=== PATIENT | female | born 1965 | race Caucasian/White ===

== ENCOUNTER 2018-05-27 17:14 | Emergency (ER) | payer MEDICAID ==
[~2018-05-27] VITALS: Ht 162.6 cm; Wt 67.0 kg
[~2018-05-27 17:14] MED LIST: DOXY100C43 PO; NO HOME MEDS
[2018-05-27 17:39] VITALS: BP 135/69
[2018-05-27] MEDS ORDERED: MUPI22OI30 TOP (18:09)
== END 2018-05-27 18:19 | disposition home or self-care (01) ==
LOC: ER 17:15
DX: L08.9 Local infection of the skin and subcutaneous tissue, unspecified (principal); M19.90 Unspecified osteoarthritis, unspecified site; G89.29 Other chronic pain; M54.9 Dorsalgia, unspecified; Z98.890 Other specified postprocedural states; Z90.710 Acquired absence of both cervix and uterus; Z88.5 Allergy status to narcotic agent; Z88.0 Allergy status to penicillin; Z88.6 Allergy status to analgesic agent
CPT/HCPCS: 99283; L4360

== ENCOUNTER 2019-01-27 21:55 | Emergency (ER) | payer MEDICAID ==
[~2019-01-27] VITALS: Ht 157.5 cm; Wt 68.2 kg
[~2019-01-27 21:55] MED LIST changes: -DOXY100C43 PO
[2019-01-27 21:56] VITALS: BP 121/67
--- NOTE | 2019-01-27 22:04 | NUR ---
CAT BITE ON HER TOP OF LEFT HAND. SWOLLEN, NO DRAINAGE NOTED.
[2019-01-27] MEDS ORDERED: TETanus/Pertussis (Acell)/Diphther VAC/PF (Tdap-Adult) 0.5ml syringe IM ONE (22:05)
[2019-01-27] MEDS ORDERED: AMOX-419 PO (22:09)
== END 2019-01-27 22:24 | disposition home or self-care (01) ==
LOC: ER 21:55
DX: S61.432A Puncture wound without foreign body of left hand, initial encounter (principal); G89.29 Other chronic pain; M19.90 Unspecified osteoarthritis, unspecified site; Z98.890 Other specified postprocedural states; Z90.710 Acquired absence of both cervix and uterus; Z88.5 Allergy status to narcotic agent; Z88.0 Allergy status to penicillin; Z88.8 Allergy status to other drugs, medicaments and biological substances; Z79.899 Other long term (current) drug therapy; W55.01XA Bitten by cat, initial encounter; Y93.89 Activity, other specified; Y92.89 Other specified places as the place of occurrence of the external cause; Y99.8 Other external cause status
CPT/HCPCS: 90471; 90715; 99283

== ENCOUNTER 2019-09-09 16:15 | Emergency (ER) | payer MEDICAID ==
[~2019-09-09] VITALS: Ht 154.9 cm; Wt 70.0 kg
[2019-09-09 16:22] VITALS: BP 161/72
[2019-09-09] MEDS ORDERED: CYCL-1 PO (16:55)
[2019-09-10] MEDS ORDERED: LIDO700A32 TP (22:41)
[2019-09-10] MEDS ORDERED: HYDR-3965 PO (22:41)
== END 2019-09-09 17:14 | disposition home or self-care (01) ==
LOC: ER 16:15
DX: M54.5 Low back pain (principal); G89.29 Other chronic pain; M19.90 Unspecified osteoarthritis, unspecified site; Z90.710 Acquired absence of both cervix and uterus; Z98.890 Other specified postprocedural states; Z88.5 Allergy status to narcotic agent; Z88.0 Allergy status to penicillin; Z88.6 Allergy status to analgesic agent; Z88.8 Allergy status to other drugs, medicaments and biological substances; Z79.899 Other long term (current) drug therapy
CPT/HCPCS: 99283

== ENCOUNTER 2019-09-10 21:21 | Emergency (ER) | payer MEDICAID ==
[~2019-09-10] VITALS: Ht 154.9 cm; Wt 69.0 kg
[~2019-09-10 21:21] MED LIST changes: +CYCL-1 PO
[2019-09-10] MEDS ORDERED: acetaminophen 325mg tablet PO ONE ×2 (21:40)
[2019-09-10] MEDS ORDERED: aspirin 325mg tablet PO ONE (21:40)
[2019-09-10] MEDS ORDERED: LIDOcaine 5% patch TP ONE (21:40)
[2019-09-10 21:49] LABS: CLARITY,URINE CLEAR (Clear); COLOR,URINE YELLOW (Yellow); GLUCOSE, URINE NEGATIVE (Neg); KETONES,URINE NEGATIVE (Neg); LEUKOCYTE ESTERASE ,URINE NEGATIVE (Neg); NITRITES, URINE NEGATIVE (Neg); OCCULT BLOOD,URINE SMALL (Neg); PH,URINE 6.5 (4.8-8.0); PROTEIN,URINE NEGATIVE (Neg); UROBILINOGEN,URINE 0.2 E.U/dL (0.2-1.0)
[2019-09-10 21:52] LABS: UA COLLECTION TYPE CLN CATCH MIDSTREAM
[2019-09-10 21:59] LABS: BACTERIA,URINE 2+ /HPF (Neg); MUCUS STRANDS NONE SEEN /LPF (Neg); RBC,URINE 0-2 /HPF (0-2); SQUAMOUS EPITHELIAL CELL,UR MODERATE /LPF (FEW); WBC,URINE NONE SEEN /HPF (0-4)
[2019-09-10] MEDS ORDERED: HYDR-3965 PO (22:41)
[2019-09-10] MEDS ORDERED: LIDO700A32 TP (22:41)
[2019-09-10 22:49] VITALS: BP 127/45
== END 2019-09-10 22:50 | disposition home or self-care (01) ==
LOC: ER 21:22
DX: M54.5 Low back pain (principal); R42 Dizziness and giddiness; N39.0 Urinary tract infection, site not specified; M19.90 Unspecified osteoarthritis, unspecified site; Z90.710 Acquired absence of both cervix and uterus; Z88.5 Allergy status to narcotic agent; Z88.0 Allergy status to penicillin
CPT/HCPCS: 81001; 99284

== ENCOUNTER 2022-05-12 12:48 | Emergency (ER) | payer MEDICARE, MEDICAID ==
[~2022-05-12] VITALS: Ht 154.9 cm; Wt 75.0 kg
[~2022-05-12 12:48] MED LIST changes: +LIDO700A32 TP
[2022-05-12 13:43] VITALS: BP 161/75
[2022-05-12] MEDS ORDERED: DOXY-1 PO ×3 (14:05→14:58)
[2022-05-12] MEDS ORDERED: DOXYCYCLINE 100MG CAPSULE PO STA (14:10)
[2022-05-12] MEDS ORDERED: ketorolac trometh inj. 60 MG/2 ML VIAL IM ONE (14:10)
[2022-05-12] MEDS ORDERED: bacitracin 15gm ointment TP ONE (14:10)
== END 2022-05-12 15:14 | disposition home or self-care (01) ==
LOC: ER 12:49
DX: S71.101A Unspecified open wound, right thigh, initial encounter (principal); G89.29 Other chronic pain; M54.9 Dorsalgia, unspecified; Z88.5 Allergy status to narcotic agent; Z88.0 Allergy status to penicillin; Z88.6 Allergy status to analgesic agent; Z79.899 Other long term (current) drug therapy; Z90.49 Acquired absence of other specified parts of digestive tract; W54.0XXA Bitten by dog, initial encounter; Y93.89 Activity, other specified; Y92.89 Other specified places as the place of occurrence of the external cause; Y99.8 Other external cause status
CPT/HCPCS: 73552; 96372; 99283; J1885; A6258

== ENCOUNTER 2023-02-24 09:00 | Emergency (ER) | payer MEDICARE, MEDICAID ==
[~2023-02-24] VITALS: Ht 154.9 cm; Wt 77.3 kg
[~2023-02-24 09:00] MED LIST changes: +DOXY-1 PO
[2023-02-24] MEDS ORDERED: ipratropium/albuterol 3ml nebule NEB ONE (09:25)
[2023-02-24] MEDS ORDERED: METH4TAB81 PO (09:29)
[2023-02-24] MEDS ORDERED: NYST1000 PO (09:29)
[2023-02-24] MEDS ORDERED: CLAR-69 PO (09:29)
--- NOTE | 2023-02-24 10:02 | NUR ---
Assumed care from RN. Pt in stable condition.
[2023-02-24 10:14] VITALS: BP 143/68
== END 2023-02-24 10:13 | disposition home or self-care (01) ==
LOC: ER 09:01
DX: J01.90 Acute sinusitis, unspecified (principal); J45.901 Unspecified asthma with (acute) exacerbation; B37.0 Candidal stomatitis; M19.90 Unspecified osteoarthritis, unspecified site; Z88.0 Allergy status to penicillin; Z88.5 Allergy status to narcotic agent; Z98.890 Other specified postprocedural states; Z90.710 Acquired absence of both cervix and uterus
CPT/HCPCS: 94640; 94760; 99283

== ENCOUNTER 2023-06-29 10:33 | Emergency (ER) | payer MEDICAID, MEDICARE, OTHER ==
[~2023-06-29] VITALS: Ht 154.9 cm; Wt 73.6 kg
[~2023-06-29 10:33] MED LIST changes: +METH4TAB81 PO
[2023-06-29 10:46] VITALS: BP 132/69; PULSE 89; RESP 18; TEMP 97.9; O2SAT 98
[2023-06-29] MEDS ORDERED: LIDOcaine 5% patch TP ONE (13:15)
== END 2023-06-29 14:06 | disposition home or self-care (01) ==
LOC: ER 10:33
DX: S13.4XXA Sprain of ligaments of cervical spine, initial encounter (principal); V49.9XXA Car occupant (driver) (passenger) injured in unspecified traffic accident, initial encounter; Y93.89 Activity, other specified; Y92.89 Other specified places as the place of occurrence of the external cause; Y99.8 Other external cause status
CPT/HCPCS: 72040; 99284

== ENCOUNTER 2025-07-01 05:55 | Emergency (ER) | payer MEDICARE, MEDICAID ==
[~2025-07-01] VITALS: Ht 154.9 cm; Wt 77.1 kg
[~2025-07-01 05:55] MED LIST changes: +LIDO-52 TP; -LIDO700A32 TP
--- NOTE | 2025-07-01 06:26 | Physician Documentation ---
History of Present Illness General Chief Complaint: Neck pain Stated Complaint: NECK PAIN Time Seen by MD: 06:18 Primary Medical Doctor: CHRIS History of Present Illness Initial Comments 58-year-old female with a history of hypertension who woke up yesterday morning with pain in her neck, especially on the left side. She has had this previously, at least once. She took some ibuprofen yesterday afternoon and Tylenol last night. She denies any fever or other constitutional symptoms. She denies any injury. Medication Reconciliation Allergies: Coded Allergies: Oxycodone Terephthalate (Verified Allergy, Unknown, 07/01/25) Penicillins (Verified Allergy, Unknown, 07/01/25) codeine (Verified Allergy, Unknown, 07/01/25) oxycodone HCl (Verified Allergy, Unknown, 07/01/25) tramadol (Verified Adverse Reaction, Mild, nightmares, 07/01/25) Scheduled Doxycycline Hyclate (Doxycycline Hyclate), 1 CAP PO Q12H Lidocaine (Lidoderm), 1 PATCH TP DAILY Methylprednisolone (Medrol Dosepak), 4 MG PO DAILY Scheduled PRN Cyclobenzaprine* (Cyclobenzaprine*), 1 TABLET PO Q8H PRN for muscle spasms Miscellaneous Medications Home Med List (No Home Medications), (Reported) Past Medical History Past Medical History: Vertigo, UTI, Arthritis, Chronic Back Pain Past Surgical History: , hysterectomy Smoking: Cigarettes, Greater than 1 pack/day Alcohol Use: None Drug Use: none Lives with: S/O Lives In: Home Occupation: employed Review of Systems ROS Constitutional: Denies chills, fatigue, fever, weight gain or weight loss. HEENT: Denies hearing loss, sinus pressure or visual changes. Respiratory: Denies cough, shortness of breath or wheezing. Cardiovascular: Denies chest pain, pain while walking (claudication), edema or palpitations. Gastrointestinal: Denies abdominal pain, blood in stool, constipation, diarrhea, heartburn, loss of appetite, nausea or vomiting. Genitourinary: Denies painful urination (dysuria), excessive amount of urine (polyuria) or urinary frequency. Metabolic/Endocrine: Denies cold intolerance, heat intolerance, excessive thirst (polydipsia) or excessive hunger (polyphagia). Neurological: Denies dizziness, extremity numbness, extremity weakness, headaches, seizures or tremors. Psychiatric: Denies anxiety or depression. Integumentary: Denies breast discharge, breast lump, hives, mole change(s), r raina or skin lesion. Musculoskeletal: Neck pain, left side. Hematologic: Denies easily bleeding, easily bruises, lymphedema or issues with blood clots. Immunologic: Denies food allergies or seasonal allergies. Physical Exam Physical Exam Vital Signs: Temperature: 97.4, Source: Oral, Heart Rate: 99, Respiratory Rate: 16, BP: 176/73, Pulse Oximetry: 97, Weight: 77.100 Physical Exam Physical Exam Vitals and nursing note reviewed. Constitutional: General: Patient is awake, alert, oriented x 4 in no acute distress and well appearing. Speech is clear and lucid. Appearance: Normal appearance. Patient is not ill-appearing, toxic-appearing or diaphoretic. HENT: Head: Normocephalic and atraumatic. Mouth/Throat: Mouth: Mucous membranes are moist. Pharynx: Oropharynx is clear. Eyes: General: No scleral icterus. Extraocular Movements: Extraocular movements intact. Pupils: Pupils are equal, round, and reactive to light. Neck: Supple, no Kernig or Brudzinski sign. Cardiovascular: Rate and Rhythm: Normal rate and regular rhythm. Heart sounds: No murmur heard. Pulmonary: Effort: No respiratory distress. Breath sounds: No wheezing, rhonchi or rales. Abdominal: General: There is no distension. Palpations: There is no fluid wave, hepatomegaly or mass. Tenderness: There is no abdominal tenderness. There is no guarding. Musculoskeletal: General: No midline tenderness of the cervical spine. Skin: Coloration: Skin is not jaundiced. Findings: No erythema or rash. Neurological: Mental Status: Patient is alert. Progress Results/Orders Results/Orders Orders - VASHTI GEORGES MD [facility] (07/01/25 ) Completed Orders - VASHTI GEORGES MD Ibuprofen Tablet (Motrin Tablet) (07/01/25 06:35) Cyclobenzaprine Tablet (Flexeril Tablet) (07/01/25 06:35) [facility] (07/01/25 ) Vital Signs 07/01/25 07/01/25 07/01/25 06:05 06:33 06:33 Temp 97.4 97.4 Pulse 99 84 Resp 16 16 18 B/P (MAP) 176/73 150/71 (97) Pulse Ox 97 96 O2 Flow Rate 0 Medical Decision Making Findings Patient presents with left-sided neck pain upon wakening yesterday. No history of trauma. No fever or constitutional symptoms. Departure Disposition: HOME / SELF CARE / HOMELESS Impression: Primary Impression: Neck pain Condition: Stable Referrals: NO PRIMARY CARE PROVIDER (PCP) Education Educated: Patient Educated regarding: diagnosis, treatment, prognosis, need for follow up Signature Scribe Signature: . Attestation: . VASHTI GEORGES MD Jul 01, 2025 06:26
[2025-07-01 06:33] VITALS: BP 150/71; PULSE 84; RESP 18; TEMP 97.4; O2SAT 96
[2025-07-01] MEDS: ibuprofen tablet 400 MG TABLET PO ONE (06:47)
--- NOTE | 2025-07-01 07:22 | RADIOLOGY REPORT ---
INDICATION: Pain TECHNIQUE: 3 views of the cervical spine were obtained. COMPARISON: None. FINDINGS: The cervical spine is visualized from C1-C7. There is loss of the normal cervical lordosis which can be positional. No fractures or subluxations are identified. Mild multilevel anterior osteophytosis. Alignment appears unremarkable. Prevertebral soft tissues are within normal limits. IMPRESSION: 1. Mild degenerative change of the cervical spine without evidence for fracture or subluxation.
== END 2025-07-01 11:55 | disposition home or self-care (01) ==
LOC: ER 05:55
DX: M54.2 Cervicalgia (principal); I10 Essential (primary) hypertension; M19.90 Unspecified osteoarthritis, unspecified site; Z88.0 Allergy status to penicillin; Z88.5 Allergy status to narcotic agent; Z90.710 Acquired absence of both cervix and uterus
CPT/HCPCS: 72040; 99283

== ENCOUNTER 2025-10-06 09:59 | Outpatient (CLI) | payer MEDICARE, MEDICAID ==
--- NOTE | 2025-10-06 10:56 | RADIOLOGY REPORT ---
EXAM: CT CT CHEST LOW DOSE HISTORY: ENCNTR SCREEN FOR MALIGNANT NEOPLASM OF RESPIRATORY ORGANS 60-year-old female current smoker with lung cancer screening. COMPARISON: None TECHNIQUE: Noncontrast helical CT images of the chest were performed utilizing low dose lung cancer screening protocol. Sagittal and coronal reformatted images were obtained. This CT exam was performed using one or more of the following dose reduction techniques: Automated exposure control, adjustment of the mA and/or kV according to patient size, or use of iterative reconstruction technique. Radiation Dose: CT Dose: CTDI volume is 2.8 mGy. Dose-length product is 85.33 mGy*cm FINDINGS: There is a 4.5 mm noncalcified pulmonary nodule in the lower-anterior aspect of the right upper lobe, just above the oblique fissure. There is a right lower lobe 5.5 mm noncalcified pulmonary nodule (image 139, series 2). There is a 5 mm right upper lobe noncalcified pulmonary nodule (image 33, series 2). No consolidative infiltrates, pneumothorax, pleural effusions, or pulmonary edema. There is moderate central peribronchial thickening. No suspicious mediastinal or axillary adenopathy. The heart is not enlarged. There are coronary artery atherosclerotic calcifications. There is diffuse prominence of the pericardial fat. No thoracic aortic aneurysm. There is mild thoracic degenerative disc disease. IMPRESSION: 1. 3 distinct right lung noncalcified pulmonary nodules measuring 4.5-5.5 mm. 2. Reactive airways disease. 3. Coronary artery disease. Lung-RADS 2. Benign. Continue annual screening with LDCT in 12 months. Lung-RADS v2022.
== END 2025-10-06 23:59 | disposition home or self-care (01) ==
LOC: 64 CT 09:59
PROVIDERS: ATTEND Internal Medicine
DX: Z12.2 Encounter for screening for malignant neoplasm of respiratory organs (principal); F17.210 Nicotine dependence, cigarettes, uncomplicated; R91.8 Other nonspecific abnormal finding of lung field; J45.998 Other asthma; M51.34 Other intervertebral disc degeneration, thoracic region; I25.10 Atherosclerotic heart disease of native coronary artery without angina pectoris; J98.09 Other diseases of bronchus, not elsewhere classified
CPT/HCPCS: 71271

== ENCOUNTER 2025-10-15 07:47 | Outpatient (CLI) | payer MEDICARE, MEDICAID ==
[2025-10-15 09:01] VITALS: PULSE 92; RESP 16; O2SAT 96
--- NOTE | 2025-10-16 15:06 | PROCEDURE NOTE - Respiratory ---
Procedure Note-Respiratory Providers to CC Copies To 1: ANGELICA NATH DO Procedure Name: This is a spirometry study dated October 15, 2025. There was also a lung diffusion measurement made as well. Spirometry measurements: The forced vital capacity is reduced at 1.88 L. The FEV1 is also reduced at 1.41 L. the FEV1 ratio is reduced. All of the measured flow rates show some degree of reduction. Bronchodilator was not administered as part of the study. Lung diffusion measurement: The DLCO measurement is normal. Conclusion: This study is abnormal. There is evidence for moderate severity obstructive ventilatory defect. These findings are consistent with the patient's diagnosis of smoking-related COPD. It is strongly recommended that the patient abstain from cigarette smoking. Bronchodilator therapy should continue for this patient. We have no previous studies for comparison. DAVID ZARCO MD Oct 16, 2025 15:06
== END 2025-10-15 23:59 | disposition home or self-care (01) ==
LOC: RT 07:47
PROVIDERS: ATTEND Internal Medicine
DX: J43.9 Emphysema, unspecified (principal); R06.09 Other forms of dyspnea
CPT/HCPCS: 94010; 94729; 94760